=== PATIENT | male | born 1960 | race Hispanic/Latino ===

== ENCOUNTER 2022-03-06 22:34 | Emergency (ER) | payer BC, OTHER ==
[~2022-03-06] VITALS: Ht 177.8 cm; Wt 97.5 kg
[~2022-03-06 22:34] MED LIST: AMIO200T68 PO; APIX5TAB PO; ASPI-1197 PO; EZET10TA13 PO; INDO50CA98 PO; OMEG1CAP43 PO; PRAV40TA3 PO; [UNRECOGNIZED DRUG - CODE] PO
[2022-03-06] MEDS ORDERED: 0.9%NACL 1000ML 1,000 ML IV SCH (23:00)
[2022-03-06 23:17] LABS: BASOPHILS % (AUTO) 0.6 % (0.0-5.0); EOSINOPHILS % (AUTO) 1.9 % (0.0-8.0); LYMPHOCYTES % (AUTO) 28.3 % (21.0-51.0); MEAN CORPUSCULAR HEMOGLOBIN 23.8 pg (27.0-33.0); MEAN CORPUSCULAR VOLUME 79.4 fL (79-99); MONOCYTES % (AUTO) 9.9 % (3.0-13.0); NEUTROPHILS % (AUTO) 58.8 % (40.0-77.0); NUCLEATED RED BLOOD CELLS 0.4 % (0.0-0.19); PLATELET COUNT (AUTO) 232 K/uL (130-400); RED BLOOD CELL COUNT(AUTO) 3.78 MIL/uL (4.50-6.20); RED CELL DISTRIBUTION WIDTH 14.9 % (11.0-15.5)
[2022-03-06 23:28] LABS: CREATININE 2.1 mg/dL (0.5-1.5); POTASSIUM 4.3 mmol/L (3.5-5.1)
[2022-03-06 23:42] LABS: ALBUMIN 3.5 g/dL (3.5-5.0); TOTAL PROTEIN, SERUM 7.7 g/dL (6.0-8.3)
[2022-03-06 23:53] LABS: B-TYPE NATRIURETIC PEPTIDE 93 pg/mL (0-100)
[2022-03-07 00:25] VITALS: BP 146/60
== END 2022-03-07 00:33 | disposition home or self-care (01) ==
LOC: EDH 22:34
DX: R55 Syncope and collapse (principal); R42 Dizziness and giddiness; I10 Essential (primary) hypertension; E78.00 Pure hypercholesterolemia, unspecified; I48.91 Unspecified atrial fibrillation; Z79.01 Long term (current) use of anticoagulants; Z79.82 Long term (current) use of aspirin; Z79.899 Other long term (current) drug therapy
CPT/HCPCS: 36415; 71045; 80053; 83880; 84484; 85025; 86850; 86900; 86901; 93005

== ENCOUNTER → 2022-05-05 | Outpatient (CLI) | payer BC ==
[~2022-05-05] MED LIST changes: +ALBUTEROL 0.083% 2.5 MG/3 ML INH IH ONE; +FISH1CAP17 PO; -OMEG1CAP43 PO
== END | disposition home or self-care (01) ==
LOC: RESP 12:47
PROVIDERS: ATTEND Internal Medicine Cardiovascular Disease
DX: R06.02 Shortness of breath (principal)
CPT/HCPCS: 94060; 94727; 94729

== ENCOUNTER → 2024-07-10 | Outpatient (CLI) | payer MEDICARE ==
[~2024-07-10] MED LIST changes: -ALBUTEROL 0.083% 2.5 MG/3 ML INH IH ONE; -EZET10TA13 PO; +EZET10TA81 PO
== END | disposition home or self-care (01) ==
LOC: SHCH 11:24
PROVIDERS: ATTEND Internal Medicine Cardiovascular Disease
DX: I48.0 Paroxysmal atrial fibrillation (principal)
CPT/HCPCS: 93306

== ENCOUNTER 2024-11-16 12:16 | Emergency (ER) | payer MEDICARE ==
[~2024-11-16] VITALS: Ht 157.5 cm; Wt 97.5 kg
[~2024-11-16 12:16] MED LIST changes: -FISH1CAP17 PO; +OMEG-13 PO
--- NOTE | 2024-11-16 12:30 | NUR ---
PT JUST NOW PLACED IN MY ED BED 12
--- NOTE | 2024-11-16 12:33 | ERN ---
General Chief Complaint: Headache Stated Complaint: BACK HEAD PAIN Time Seen by MD: 12:18 Source: patient, family History of Present Illness Initial Comments PATIENT IS A 64-YEAR-OLD MALE COMING IN COMPLAINING OF NECK SPASMS AND POSTERIOR EAR DISCOMFORT. HE STATES THAT THE PAIN FLUCTUATES IN INTENSITY AND TIMING. STATES THAT HE IS PRESENT ALMOST EVERY 20 MINUTES. IT DOES NOT RECALL ANY TRAUMATIC EVENT. HE DOES STATE THAT HE HAS BEEN HAVING URI SYMPTOMS FOR A WEEK. Allergies: Coded Allergies: No Known Drug Allergies (Unverified Allergy, Unknown, 05/21/15) Home Meds Active Scripts Amiodarone HCl (Amiodarone HCl) 200 Mg Tablet, 200 MG PO DAILY, #30 TAB 3 Refills Prov:Kirsten PEREZ II, MD 05/26/15 Reported Medications [place]-3/Dha/Epa/Fish Oil (Fish Oil 1,000 mg Softgel) 1,000 Mg (120 Mg-180 Mg) Capsule, 1 CAP PO BID for 30 Days, #60 CAP 0 Refills 11/16/24 Multivitamin (Multi Vitamin Daily) 1 Each Tablet, 1 TAB PO DAILY for 30 Days, #30 TAB 0 Refills 11/16/24 Aspirin (Aspirin) 81 Mg Tab.chew, 1 TAB PO DAILY for 30 Days, #30 TAB 0 Refills 11/16/24 Ferrous Sulfate (Iron) 325 Mg (65 Mg Iron) Tablet, 1 TAB PO DAILY for 30 Days, # 60 TAB 0 Refills 11/16/24 Amlodipine Besylate/Benazepril (Amlodipine-Benazepril 5-40 mg) 5 Mg-40 Mg Capsule, 1 CAP PO DAILY for 30 Days, #30 CAP 0 Refills 11/16/24 Atorvastatin Calcium (LIPITOR) 40 Mg Tablet, 1 TAB PO DAILY for 30 Days, #30 TAB 0 Refills 11/16/24 Folic Acid (Folic Acid) 0.8 Mg Tablet, 1 MG PO DAILY, TAB 11/16/24 Amiodarone HCl (Amiodarone HCl) 200 Mg Tablet, 1 TAB PO DAILY for 30 Days, #30 TAB 0 Refills 11/16/24 Rivaroxaban (Xarelto) 20 Mg Tablet, 1 TAB PO DAILY for 30 Days, #30 TAB 0 Refills with food 11/16/24 [place]-3 Fatty Acids/Fish Oil (Fish Oil 1,000 mg Softgel) 1 Each Capsule, 1 EACH PO DAILY, CAP 1/4/16 Apixaban (Eliquis) 5 Mg Tablet, 5 MG PO BID, TAB 06/30/15 Ezetimibe (Zetia) 10 Mg Tablet, 10 MG PO HS, TAB 05/21/15 Amlodipine Bes/Olmesartan Med (Bill 10-40 mg Tablet) 1 Each Tablet, 1 EACH PO DAILY, TAB 05/21/15 Indomethacin (Indomethacin) 50 Mg Capsule, 50 MG PO TID PRN for GOUT, CAP 05/21/15 Aspirin (Aspirin) 81 Mg Tab.chew, 81 MG PO DAILY, TAB.CHEW 05/21/15 Pravastatin Sodium (Pravastatin Sodium) 40 Mg Tablet, 40 MG PO HS, TAB 05/21/15 Past Medical History Past Medical History: A-Fib, High Cholesterol, Hypertension Past Surgical History: Other Surgical History Other: LT KNEE Social History Social History: Negative, Lives with family ROS Dictation CONSTITUTIONAL: NO CHILLS, NO FEVER, NO WEAKNESS, NO DIAPHORESIS, NO MALAISE. HEAD/FACE: NO SIGNS OF TRAUMA. EENT: NO EYE PAIN, NO BLURRED VISION, NO TEARING, NO DOUBLE VISION, NO EAR PAIN, NO EAR DISCHARGE, NO NOSE PAIN, NO NASAL CONGESTION, NO THROAT PAIN, NO THROAT SWELLING, NO MOUTH PAIN. RESPIRATORY: NO COUGH, NO ORTHOPNEA, NO SOB, NO STRIDOR, NO WHEEZING. CARDIOVASCULAR: NO CHEST PAIN, NO EDEMA, NO PALPITATIONS, NO SYNCOPE. GASTROINTESTINAL/ABDOMINAL: NO ABDOMINAL PAIN, NO CONSTIPATION, NO DIARRHEA, NO NAUSEA, NO VOMITING. GENITOURINARY: NO ABNORMAL DISCHARGE, NO DYSURIA, NO FREQUENT URINATION, NO HEMATURIA. NO COMPLAINTS OF PAIN IN THE GENITALS. MUSCULOSKELETAL: NO BACK PAIN, NO GOUT, NO JOINT PAIN, NO JOINT SWELLING, NO MUSCLE PAIN, NO MUSCLE STIFFNESS, NO NECK PAIN. INTEGUMENTARY: NO CHANGE IN COLOR, NO CHANGE IN HAIR/NAILS, NO DRYNESS, NO LESION, NO LUMPS, NO RASH. NEUROLOGICAL/PSYCH: NO ANXIETY, NOT DEPRESSED, NO EMOTIONAL PROBLEM, NO HEADACHE, NO NUMBNESS, NO PRE-EXISTING DEFICIT, NO HISTORY OF SEIZURES, NO TREMORS, NO WEAKNESS. HEMATOLOGIC/LYMPHATIC: NOT ANEMIC, NO HISTORY OF BLOOD CLOTS, NO APPARENT BLEEDING, NO BRUISING, GLANDS NOT SWOLLEN. ALL SYSTEMS NEGATIVE, EXCEPT NOTED. Physical Exam Physical Exam Dictation VITAL SIGNS: REVIEWED. GENERAL APPEARANCE: ALERT, ORIENTED X3, NO ACUTE DISTRESS, OBESE. HEAD AND FACE: NON-TRAUMATIC. EYES: PERRL, PINK CONJUNCTIVAS, EYELID NO TRAUMA, ANTERIOR CHAMBER CLEAR. EARS: PINNAS INTACT AND NO SIGNS OF TRAUMA OR ERYTHEMA. EAR CANALS CLEAR AND NO DISCHARGE. TMS NO ERYTHEMA. NOSE: NO DISCHARGE, NO BLEEDING. OROPHARYNX: MOUTH NORMAL, TEETH NO CARIES, TONGUE PINK. PHARYNX CLEAR, NO ERYTHEMA. TONSILS NO EXUDATES, NO ABSCESSES NOTED. MUCOUS MEMBRANE MOIST. NECK: SUPPLE, NON-TENDER, NO THYROMEGALY, NO MASSES, NO JVD, NO BRUITS. BREAST: DEFERRED. CHEST: NO TENDERNESS, NO CREPITUS, NO PARADOXICAL MOVEMENT, NO RETRACTIONS. LUNGS: CLEAR, WELL-VENTILATED, SYMMETRIC, NO RALES, NO WHEEZING, NO RHONCHI, NO STRIDOR, GOOD BREATH SOUNDS BILATERALLY. HEART: REGULAR RATE, REGULAR RHYTHM, NO MURMUR, NO GALLOPS. VASCULAR: NO PERIPHERAL EDEMA. ABDOMEN: SOFT, POSITIVE BOWEL SOUNDS, NONDISTENDED, NO GUARDING, NONTENDER, NO REBOUND, NO MASSES NO HEPATOMEGALY, NO SPLENOMEGALY, NO HAWTHORNE'S SIGN, NO HERNIAS. RECTAL: DEFERRED. GENITAL: DEFERRED. NEUROLOGICAL: NORMAL SPEECH, GROSS MOTOR FUNCTION INTACT, GROSS SENSORY FUNCTION INTACT. MUSCULOSKELETAL: NECK NONTENDER, FULL RANGE OF MOTION, BACK NONTENDER, FULL RANGE OF MOTION. EXTREMITIES: NONTENDER, FULL RANGE OF MOTION. SKIN: COLOR PINK, DRY, NO TURGOR, NO RASH, NO LACERATIONS, NO ABRASIONS, NO CONTUSIONS. LYMPHATICS: DEFERRED. Results Laboratory and Microbiology Lab and Micro Result Laboratory Tests Test 11/16/24 12:43 11/16/24 13:27 White Blood Count 6.4 K/uL (4.8-10.8) Red Blood Count 4.24 MIL/uL (4.50-6.20) L Hemoglobin 12.1 g/dL (14.0-18.0) L Hematocrit 38.6 % (42-54) L Mean Corpuscular Volume 91.0 fL (79-99) Mean Corpuscular Hemoglobin 28.5 pg (27.0-33.0) Mean Corpuscular Hemoglobin Concent 31.3 g/dL (32.0-36.0) L Red Cell Distribution Width 14.4 % (11.0-15.5) Platelet Count 236 K/uL (130-400) Mean Platelet Volume 10.7 fL (7.5-10.5) H Immature Granulocyte % (Auto) 0.6 % (0-1) Neutrophils (%) (Auto) 68.2 % (40.0-77.0) Lymphocytes (%) (Auto) 21.3 % (21.0-51.0) Monocytes (%) (Auto) 8.8 % (3.0-13.0) Eosinophils (%) (Auto) 0.6 % (0.0-8.0) Basophils (%) (Auto) 0.5 % (0.0-5.0) Neutrophils # (Auto) 4.4 K/uL (1.8-7.7) Lymphocytes # (Auto) 1.4 K/uL (1.0-4.8) Monocytes # (Auto) 0.6 K/uL (0.1-1.0) Eosinophils # (Auto) 0.04 K/uL (0.00-0.70) Basophils # (Auto) 0.03 K/uL (0.00-0.20) Absolute Immature Granulocyte (auto 0.04 K/uL (0-1) Nucleated Red Blood Cells 0.0 % (0.0-0.19) Sodium Level 139 mmol/L (136-145) Potassium Level 5.2 mmol/L (3.5-5.1) H Chloride Level 105 mmol/L (101-111) Carbon Dioxide Level 25 mmol/L (21-32) Blood Urea Nitrogen 27 mg/dL (7-18) H Creatinine 1.6 mg/dL (0.5-1.3) H Glomerular Filtration Rate Calc 47 mL/min (>90) Random Glucose 110 mg/dL (70-105) H Total Calcium 8.9 mg/dL (8.5-10.1) Magnesium Level 2.00 mg/dL (1.80-2.40) Total Creatine Kinase 103 U/L (21-232) Troponin I High Sensitivity 6 ng/L (4-75) Whole Blood Glucose 98 MG/DL (70-110) Labs Reviewed?: Yes EKG/XRAY/US/CT/MRI EKG Comment 11/16/2024 TIME 12:32 P.M. VENTRICULAR RATE [address] WAVE ELEVATION OR DEPRESSION MDM MDM: DIFFERENTIAL DIAGNOSIS: FOR LIKE THIS BALANCE, MUSCLE SPASMS, RATIONALE: TESTS CONSIDERED AND ORDERED SECONDARY TO SHARED DECISION MAKING INCLUDE: PREVIOUS OUTSIDE RECORDS REVIEWED: OLD ER VISITS. RISK OF COMPLICATION AND/OR MORBIDITY OR MORTALITY OF PATIENT MANAGEMENT: NONE PATIENT IS A 64-YEAR-OLD MALE COMING IN TO BE EVALUATED FOR NECK SPASMS. HE STATES THAT HE FEELS SHOCKING SENSATION BACK IN HIS NECK. ELECTROLYTES DID SHOW AN ELEVATED POTASSIUM 5.2 AND ELEVATED CREATININE 1.6. PATIENT DOES HAS A HISTORY OF AFIB PATIENT RECEIVED SOME FLUIDS WELL THE HYPOKALEMIA PROTOCOL STATES HE FEELS BETTER HAS NOT HAD ANY EPISODES OF THAT IS SENSATION. PATIENT WILL BE DISCHARGED IN STABLE CONDITION. I DID ADVISED HIM APPROPRIATE FOLLOW UP WITH PCP IN 1-2 DAYS. ED Course Orders Procedure Category Date Status Time Cbc With Differential LAB 11/16/24 Complete 12:26 12 Lead Ekg Tracing- EKG 11/16/24 Resulted Technical 12:26 Magnesium LAB 11/16/24 Complete 12:26 Creatine Kinase, Total LAB 11/16/24 Complete 12:26 Troponin I High LAB 11/16/24 Complete Sensitivity 12:26 Basic Metabolic Panel LAB 11/16/24 Complete 12:26 Dextrose 50%-Water PHA 11/16/24 Complete (Dextrose 50%-Water) 13:30 Insulin Regular, PHA 11/16/24 Complete Human 3ml (Humulin R 13:30 Albuterol 0.083% PHA 11/16/24 In Process 2.5mg/3ml (Proventil 13:30 0.9%Nacl 1000ml (Ns PHA 11/16/24 Complete 1000ml) 13:30 Dextrose 50%-Water PHA 11/16/24 Complete (D50w) 14:00 Current Medications Medications (Trade) Dose Ordered Sig/Elva Route PRN Reason Start Time Stop Time Status Last Admin Dose Admin Albuterol Sulfate (Proventil 0.083% 2.5mg/3ml) 10 mg ONCE IH 11/16/24 13:30 12/16/24 13:29 11/16/24 14:25 Dextrose (D50w) 50 ml ONCE ONCE IV 11/16/24 14:00 11/16/24 14:01 DC 11/16/24 13:40 Dextrose (Dextrose 50%-Water) 25 gm ONCE ONCE IV 11/16/24 13:30 11/16/24 13:31 DC Insulin Human Regular (humuLIN R 100 UNIT/ML 3ML) 5 unit ONCE ONCE IV 11/16/24 13:30 11/16/24 13:31 DC 11/16/24 13:39 Sodium Chloride 1,000 ml @ 0 mls/hr ONCE ONCE IV 11/16/24 13:30 11/16/24 13:31 DC 11/16/24 13:38 Vital Signs Date Time Temp Pulse Resp B/P (MAP) Pulse Ox O2 Delivery O2 Flow Rate FiO2 11/16/24 14:28 64 18 11/16/24 14:23 98.2 56 16 128/66 97 Room Air* 0 21 11/16/24 13:00 97.9 58 16 117/58 97 Room Air* 0 21 11/16/24 12:21 97.5 61 16 142/83 98 Room Air 0 DX & DISP Disposition: Discharge Departure Impression: Primary Impression: Dehydration Additional Impressions: Hyperkalemia, Medication side effect Condition: Stable Additional Instructions: FOLLOW-UP WITH PRIMARY CARE PROVIDER IN 1 TO 2 DAYS. TAKE MEDICATIONS DIRECTED HERE IN THE EMERGENCY ROOM. OKAY TO CONTINUE HOME MEDICATIONS UNLESS OTHERWISE DISCUSSED DURING YOUR VISIT IN THE EMERGENCY ROOM TODAY. RETURN TO YOUR NEAREST EMERGENCY ROOM IF SYMPTOMS WORSEN OR IF THERE IS NO IMPROVEMENT. CALL 911 IF YOU NEED IMMEDIATE ASSISTANCE. TAKE TYLENOL [id number] NEEDED AND IF NO CONTRAINDICATIONS ARE PRESENT. INCREASE ORAL HYDRATION. A WOUND CULTURE OR URINE CULTURE WAS ORDERED HERE IN THE EMERGENCY ROOM DEPARTMENT PLEASE FOLLOW-UP WITH PRIMARY CARE PROVIDER AND ADVISE THEM TO GET REPEAT PORTS FROM OUR FACILITY. IF YOU HAD ANY HERMILO WRAP/SPLINTS THAT WERE APPLIED HERE, PLEASE DO NOT REMOVE THEM UNTIL YOU SEE YOUR PRIMARY CARE OR SPECIALTY. REFERRALS: Referrals: TAMERA RICE MD (PCP) Time of Disposition: 15:05 CHILANGO CABAN MD November 16, 2024 12:33
--- NOTE | 2024-11-16 12:53 | NUR ---
REPORT ENDORSED TO RHEA LEONARD"
[2024-11-16 12:55] LABS: BASOPHILS # (AUTO) 0.03 K/uL (0.00-0.20); BASOPHILS % (AUTO) 0.5 % (0.0-5.0); EOSINOPHILS # (AUTO) 0.04 K/uL (0.00-0.70); EOSINOPHILS % (AUTO) 0.6 % (0.0-8.0); HEMATOCRIT 38.6 % (42-54); IMMATURE GRANULOCYTE ABSOLUTE 0.04 K/uL (0-1); LYMPHOCYTES # (AUTO) 1.4 K/uL (1.0-4.8); LYMPHOCYTES % (AUTO) 21.3 % (21.0-51.0); MEAN CORPUSCULAR HEMOGLOBIN 28.5 pg (27.0-33.0); MEAN CORPUSCULAR HGB CONC 31.3 g/dL (32.0-36.0); MONOCYTES # (AUTO) 0.6 K/uL (0.1-1.0); MONOCYTES % (AUTO) 8.8 % (3.0-13.0); NEUTROPHILS # (AUTO) 4.4 K/uL (1.8-7.7); NEUTROPHILS % (AUTO) 68.2 % (40.0-77.0); PLATELET COUNT (AUTO) 236 K/uL (130-400); RED BLOOD CELL COUNT(AUTO) 4.24 MIL/uL (4.50-6.20); RED CELL DISTRIBUTION WIDTH 14.4 % (11.0-15.5); WHITE BLOOD COUNT (AUTO) 6.4 K/uL (4.8-10.8)
[2024-11-16 13:05] LABS: CREATININE 1.6 mg/dL (0.5-1.3); POTASSIUM 5.2 mmol/L (3.5-5.1)
[2024-11-16] MEDS ORDERED: ATOR40TA69 PO (13:07)
[2024-11-16] MEDS ORDERED: AMIO200T68 PO (13:07)
[2024-11-16] MEDS ORDERED: AMLO-143 PO (13:07)
[2024-11-16] MEDS ORDERED: FOLI0.8T3 PO (13:07)
[2024-11-16] MEDS ORDERED: OMEG100033 PO (13:07)
[2024-11-16] MEDS ORDERED: RIVA20TA PO (13:07)
[2024-11-16] MEDS ORDERED: FERR-82 PO (13:07)
[2024-11-16] MEDS ORDERED: MULT-1203 PO (13:07)
--- NOTE | 2024-11-16 13:18 | EKG ---
[facility] Test Date: 2024-11-16 Test Time: 12:32:06 Pat Name: MAHSA PA Department: ED Room: Gender: Educational Technology Coordinator: [id number] : 1960 Requested By: CHILANGO CABAN Order Number: [id number] Reading MD: Leslie Panchal Measurements Intervals [place] Rate: 59 P: 0 MA: 0 QRS: 2 QRSD: 92 T: 0 QT: 473 QTc: 467 Interpretive Statements Atrial fibrillation Compared to ECG 03/06/2022 22:59:11 Sinus bradycardia no longer present First degree AV block no longer present T-wave abnormality no longer present Electronically Signed On 11-16-2024 14:49:41 CDT by Leslie Panchal Please click the below link to view image of tracing.
[2024-11-16] MEDS: 0.9%NACL 1000ML 1,000 ML IV ONE (13:38)
[2024-11-16] MEDS: INSULIN humuLIN R 100 UNIT/ML 3ML IV ONE (13:39)
[2024-11-16] MEDS: DEXTROSE 50%-WATER 25 GM/50 ML VIAL IV ONE (13:40)
[2024-11-16] MEDS: DEXTROSE 50%-WATER 50 ML DISP.SYRIN IV ONE (13:40)
[2024-11-16 14:23] VITALS: BP 128/66; TEMP 98.3; O2SAT 97
[2024-11-16] MEDS: ALBUTEROL 0.083% 2.5 MG/3 ML INH IH SCH (14:25)
[2024-11-16 14:28] VITALS: PULSE 64; RESP 18
== END 2024-11-16 15:14 | disposition home or self-care (01) ==
LOC: EDH 12:16
DX: E86.0 Dehydration (principal); T50.905A Adverse effect of unspecified drugs, medicaments and biological substances, initial encounter; R25.2 Cramp and spasm; E87.5 Hyperkalemia; E78.00 Pure hypercholesterolemia, unspecified; I48.91 Unspecified atrial fibrillation; I10 Essential (primary) hypertension; Z79.82 Long term (current) use of aspirin; Z79.899 Other long term (current) drug therapy; Z79.01 Long term (current) use of anticoagulants; Y92.89 Other specified places as the place of occurrence of the external cause
CPT/HCPCS: 99284; 96374; 96361; 82550; 83735; 84484; 80048; 85025; 82948 ×2; 36415; 93005; 94640; J1815; J7030; J7070 ×2; 96375; 99285

== ENCOUNTER 2025-01-08 05:50 | Day surgery (SDC) | payer MEDICARE ==
--- NOTE | 2025-01-04 09:45 | EKG ---
[facility] [place] Test Date: 2025-01-04 Test Time: 09:39:35 Pat Name: MAHSA PA Department: [facility] Room: Gender: Beef Specialist: [id number] : 1960 Requested By: REBECCA GOINS Order Number: [id number] Reading MD: Vi Jeter Measurements Intervals [place] Rate: 43 P: -29 DE: 182 QRS: 12 QRSD: 94 T: 21 QT: 519 QTc: 438 Interpretive Statements Sinus bradycardia Compared to ECG 11/16/2024 12:32:06 Atrial fibrillation no longer present Electronically Signed On 01-04-2025 12:24:27 CDT by Vi Jeter Please click the below link to view image of tracing.
[2025-01-04 09:52] LABS: IMMATURE GRANULOCYTE ABSOLUTE 0.03 K/uL (0-1); NUCLEATED RED BLOOD CELLS 0.0 % (0.0-0.19); PLATELET COUNT (AUTO) 210 K/uL (130-400); RED BLOOD CELL COUNT(AUTO) 4.52 MIL/uL (4.50-6.20); RED CELL DISTRIBUTION WIDTH 14.2 % (11.0-15.5); WHITE BLOOD COUNT (AUTO) 5.7 K/uL (4.8-10.8)
[2025-01-04 09:56] VITALS: BP 133/61; PULSE 48; RESP 18; TEMP 98.1
[2025-01-04 09:59] LABS: CREATININE 1.5 mg/dL (0.5-1.3); GLOMERULAR FILTR. RATE CALC 51.0 mL/min (>90); GLUCOSE,RANDOM 113.0 mg/dL (70-105); SODIUM SERUM 142.0 mmol/L (136-145); UREA NITROGEN, BLOOD 27.0 mg/dL (7-18)
[2025-01-04 10:03] LABS: INR 1.18 (0.85-1.15)
--- NOTE | 2025-01-07 10:30 | NUR ---
RE: LABS REPORTED BMP RESULTS TO DR GOINS. RECEIVED ORDERS TO REPEAT CBC/BMP IN AM.
[~2025-01-08] VITALS: Ht 177.8 cm; Wt 98.8 kg
[2025-01-08] VITALS (20 sets, daily range): BP systolic 119–156; BP diastolic 44–64; PULSE 45–51; RESP 13–18; TEMP 97.2–208.2
[~2025-01-08 05:50] MED LIST changes: -AMIO200T68 PO; +AMIO200T73 PO; +AMLO1CAP87 PO; -APIX5TAB PO; +ATOR40TA69 PO; -EZET10TA81 PO; +FERR-82 PO; +FOLIC ACID PO; -INDO50CA98 PO; +MULTIVITAMIN 50+ PO; -OMEG-13 PO; +OMEGA 3 PO; -PRAV40TA3 PO; +RIVA20TA PO; -[UNRECOGNIZED DRUG - CODE] PO
[2025-01-08] MEDS ORDERED: MIDAZOLAM HCL 1 MG/ML 2ML VIAL ONE (06:53)
[2025-01-08 07:09] LABS: IMMATURE GRANULOCYTE ABSOLUTE 0.04 K/uL (0-1); NUCLEATED RED BLOOD CELLS 0.0 % (0.0-0.19); PLATELET COUNT (AUTO) 191 K/uL (130-400); RED BLOOD CELL COUNT(AUTO) 4.17 MIL/uL (4.50-6.20); RED CELL DISTRIBUTION WIDTH 14.4 % (11.0-15.5); WHITE BLOOD COUNT (AUTO) 7.0 K/uL (4.8-10.8)
[2025-01-08 07:11] LABS: CREATININE 1.9 mg/dL (0.5-1.3); GLOMERULAR FILTR. RATE CALC 38.0 mL/min (>90); GLUCOSE,RANDOM 108.0 mg/dL (70-105); SODIUM SERUM 143.0 mmol/L (136-145); UREA NITROGEN, BLOOD 35.0 mg/dL (7-18)
[2025-01-08] MEDS ORDERED: SODIUM BICARB 50MEQ 50ML VIAL 50 ML ONE (07:17)
[2025-01-08] MEDS ORDERED: LIDOCAINE HCL 400MG/20ML VIAL ONE (07:17)
[2025-01-08] MEDS ORDERED: HEParin-NS 1,000 UNIT/500 ML 1,000 ML IV ONE (07:18)
[2025-01-08] MEDS ORDERED: ATROPINE 1MG SYG IVP ONE (07:49)
[2025-01-08] MEDS ORDERED: HEParin-NS 1,000 UNIT/500 ML 500 ML IV ONE (09:28)
[2025-01-08] MEDS ORDERED: PANT40TA55 PO (12:05)
[2025-01-08] MEDS ORDERED: SUCR1TAB2 PO (12:05)
[2025-01-08] MEDS: SUCRALFATE 1 GM/10 ML PO ONE (13:00)
[2025-01-08] MEDS: SUGAMMADEX SODIUM 200 MG/2 ML VIAL IV ONE (13:01)
--- NOTE | 2025-01-08 15:25 | NUR ---
per doctor pt can take eliquis at home at 1800 pt and spouse instructed verbalizes understanding
== END 2025-01-08 15:35 | disposition home or self-care (01) ==
LOC: DAH 05:50
PROVIDERS: ATTEND Internal Medicine Cardiovascular Disease
DX: I48.0 Paroxysmal atrial fibrillation (principal); R00.1 Bradycardia, unspecified; I10 Essential (primary) hypertension; Z87.898 Personal history of other specified conditions; Z79.899 Other long term (current) drug therapy; Z79.82 Long term (current) use of aspirin; Z98.890 Other specified postprocedural states; Z80.9 Family history of malignant neoplasm, unspecified; Z82.3 Family history of stroke; Z82.49 Family history of ischemic heart disease and other diseases of the circulatory system; Z79.01 Long term (current) use of anticoagulants
CPT/HCPCS: 80048 ×2; 85025 ×2; 85610; 85730; 36415 ×2; 93005; 93656; 93657 ×2; 85347 ×7; C1894 ×3; C1732 ×3; C1769; A4649 ×2; C1760 ×3; C1766; J3010 ×3; J3490 ×5; J2270; J2720; J0461; J1644 ×6; J2250; J2704 ×2; J2371 ×2; A4215; A4222; A4221; A4663; A4216; A4606; A4223 ×3